=== PATIENT | male | born 1945 | race Caucasian/White ===

== ENCOUNTER 2025-06-15 14:13 | Outpatient (AMB) | payer MEDICARE, OTHER, SELFPAY ==
--- NOTE | 2025-06-15 14:50 | A.OFFPC_ITS ---
Vital Signs 06/15/25 14:51 Height 5 ft 10.5 in Weight 204 lb BMI 28.9 BP 120/82 Blood Pressure Location Lt brachial Position Sitting Respiration 16 Pulse 76 Pulse Source Pulse Oximeter Temp 97.1 F Temp Source Temporal Artery Scan Pulse Oximetry (%) 96 Oxygen Delivery Method Room Air Intake Visit Reasons: Routine Utility Forester Required: No Accompanied by: Self / Same As Patient Allergies clindamycin Adverse Reaction (Intermediate, Verified 06/15/25 14:50) Diarrhea ketoconazole Adverse Reaction (Intermediate, Verified 06/15/25 14:50) topical reaction-r jyoti Penicillins Adverse Reaction (Intermediate, Verified 06/15/25 14:50) rash/hive simvastatin Adverse Reaction (Intermediate, Verified 06/15/25 14:50) muscle aches Medication List - Last Reconciled 06/15/25 by Marianna Alexis MD amlodipine 5 mg PO BEDTIME amlodipine-benazepril 5-10 mg 1 cap PO DAILY ascorbate calcium (vitamin C) 500 mg PO DAILY aspirin 81 mg PO DAILY coenzyme Q10 (CoQ-10) 100 mg PO DAILY melatonin 10 mg PO BEDTIME PRN multivitamin 1 tab PO DAILY omega 8-uqg-bpe-fish oil 60-90-500 mg (Fish Oil) 1 cap PO DAILY omeprazole 20 - 40 mg PO DAILY pravastatin 20 mg PO DAILY Tobacco use date assessed: 06/15/25 Fall risk assessment: No Falls in past year Last assessed Fall Risk: 06/15/25 Dental Screening Dental Screen Date: 06/15/25 Did you have a dental visit in the last 12 months?: Yes Did you have a dental problem in the last 6 months where you did not have access to dental care?: No Was dental information given to patient?: Patient has dentist HPI HPI Comments History of Present Illness Details The patient is a 80-year-old male [facility] and to follow up on multiple issues. Cholelithiasis: The patient experienced an episode of abdominal pain after eating spicy food, which led to an ER visit on December 08. Was diagnosed with gallstones at that time. A follow-up ultrasound on December 25 confirmed several small gallstones, one near the neck of the gallbladder, but no inflammation. He has not had any recurrent attacks and is careful with his diet. Benign Prostatic Hyperplasia/elevated PSA: Following his last visit in December, the patient saw a urologist, Dr. Higginbotham, and underwent an MRI of the prostate. . He is scheduled for a follow-up appointment with the urologist in five or six months. Essential Hypertension: The patient's blood pressure is managed with amlodipine and amlodipine- benazepril. His reading today was 126/82 mmHg. Hyperlipidemia: The patient takes pravastatin for hyperlipidemia. Unintentional weight gain: The patient reports he has gained about 25 pounds over the last three years, since his hernia surgery. He notes that in the past five months he has been less active, walking less, and has been engaging in some stress-related eating with more sweets. Pt also has history of subclinical hyperthyroidism. Endovascular surveillance: The patient is due for a follow-up with endovascular services in 2025, which is expected to include a repeat MRA for carotid stenosis. 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 - He reports being less active and walki ng less over the past five months. Diagnostic Results: (December 25): Showed several small gallstones, with one near the neck of the gallbladder; there was no inflammation, normal wall thickness, and no fluid. - Incidental findings on ultrasound: A s mall cyst in the right lobe of the liver and another medial cyst were noted. Review of Systems - Constitutional: Reports weight gain of approximately 25 pounds over three years. - Gastrointestinal: Denies current abdom inal pain or tenderness - Psychological: Reports feeling stresse d and not taking good care of himself. - Neurological: Reports poor sleep quali ty. - Musculoskeletal: Reports feeling stiff in back occasionally Physical Exam - Gen: NAD - Cardiovascular: Normal rhythm. A soft murmur is noted on auscultation. Bilateral carotid auscultation reveals normal flow. - Respiratory: Lungs are clear to auscul tation bilaterally. - Abdomen: Normoactive bowel sounds. No tenderness on palpation. - Extremities: trace edema bilaterally Assessment and Plan 1. Cholelithiasis - The patient is currently asymptomatic. - He is managing his condition with diet lilly modifications, specifically avoiding spicy foods that triggered a prior attack. - The plan is to continue monitoring for symptoms. - Surgical intervention will be consider ed only if he experiences recurrent, inflamed episodes of cholecystitis. 2. Benign Prostatic Hyperplasia/PSA elev ation - The condition is stable. - The patient will continue with his [facility] ed[facility] follow-up with his urologist in 5-6 months. 3. Essential Hypertension - The patient's hypertension is well-con trolled, with a blood pressure reading of 126/82 mmHg. - Prescriptions for amlodipine-benazepri l (90-day mail order) and amlodipine (local pharmacy) will be renewed. 4. Hyperlipidemia - The condition is managed with medicati on. - A 90-day mail-order prescription for p ravastatin will be renewed. 5. Unintentional weight gain - The patient has gained 25 lbs over thr ee years, with recent contributing factors including stress, poor sleep, and decreased activity. - To investigate for underlying causes, labs will be ordered, including a CMP and a thyroid panel, given his history of fluctuating levels. 6. Subclinical hyperthyroidism- recheck tfts 7. Preventative Care - The patient is due for endovascular diego rveillance with a repeat MRA in 2025. Follow up in 4 months Discussion Notes We reviewed his recent urology follow-up, and I noted the reassuring results of his prostate MRI. We also discussed his history of gallstones, reviewing the December 25 ultrasound findings which showed cholelithiasis without acute cholecystitis. I discussed the plan to order labs, including a thyroid panel to investigate his recent weight gain, along with a CMP. Patient Instructions - Please go for your blood and urine dante ts next week or when it is convenient for you. The orders have been placed in the system, and you can visit any of the listed lab locations. - Continue taking your blood pressure an d cholesterol medications as prescribed. - To prevent gallbladder pain, continue to avoid very spicy and fatty foods. - Keep your follow-up appointment with y our urologist in 5-6 months. [facility] Medical History (Updated 06/15/25 @ 17:57 by Marianna Alexis MD) Subclinical hyperthyroidism Carotid artery stenosis GERD (gastroesophageal reflux disease) Cervical stenosis of spine Primary hypertension Hyperlipidemia, unspecified PSA elevation TIA (transient ischemic attack) Surgical History (Updated 06/15/25 @ 12:33 by Marianna Alexis MD) H/O knee surgery S/P hernia surgery H/O cervical spine surgery Family History (Updated 06/15/25 @ 12:40 by Marianna Alexis MD) Mother Primary hypertension Hyperlipidemia, unspecified Diabetes mellitus Carotid artery stenosis Brother Emphysema lung Social History Housing: [facility] Patient Tobacco Use Status: Former Tobacco user Years Smoked: 10 years e-Cigarette/Vaping Use: Never Used service: No Current occupational status: retired Questionnaire AUDIT C Alcohol Use Questionnaire (AUDIT-C) 1. How often do you have a drink containing alcohol?: Monthly or less 2. How many drinks containing alcohol do you have on a typical day when you are drinking?: 1 or 2 3. How often do you have six or more drinks on one occasion?: Never Total Score: 1 Physical exam (Primary Care) Vital Signs: Last Vital Signs Temp 97.1 F 06/15/25 14:51 Pulse 76 06/15/25 14:51 Resp 16 06/15/25 14:51 BP 120/82 06/15/25 14:51 Pulse Ox 96 06/15/25 14:51 Oxygen Delivery Method Room Air 06/15/25 14:51 BMI result Body Mass Index 28.9 Tobacco/Smoking Status: Tobacco use Status Tobacco use date assessed 06/15/25 06/15/25 14:58 Patient Tobacco Use Status Former Tobacco user 06/15/25 14:58 e-Cigarette/Vaping Use Never Used 06/15/25 14:58 Coding Level of Care Code Est Pt Level 4 (55216) Complex EM visit Add On G2211 Diagnoses Primary hypertension I10 Hyperlipidemia, unspecified hyperlipidemia type E78.5 Hyperlipidemia type: unspecified Subclinical hyperthyroidism E05.90 PSA elevation R97.20 Assessment & Plan Assessment & Plan (1) Primary hypertension: Code(s): I10 - Essential (primary) hypertension Category: Medical (2) Hyperlipidemia, unspecified: Code(s): E78.5 - Hyperlipidemia, unspecified Category: Medical Qualifiers: Hyperlipidemia type: unspecified Qualified Code(s): E78.5 - Hyperlipidemia, unspecified (3) Subclinical hyperthyroidism: Code(s): E05.90 - Thyrotoxicosis, unspecified without thyrotoxic crisis or storm Category: Medical (4) PSA elevation: Code(s): R97.20 - Elevated prostate specific antigen [PSA] Category: Medical Plan - Ordering labs including a CMP, thyroid panel, and a urine microalbumin - Patient to continue dietary modifications (avoiding fatty and spicy foods) to prevent gallbladder attacks. - Patient to continue with scheduled urology follow-up. - The patient is due for a follow-up MRA in 2025 as part of his endovascular surveillance. Orders: Orders Comprehensive Met. Panel Today E0. - Thyrotoxicosis, unspecified without thyrotoxic crisis or storm, E78.5 - Hyperlipidemia, unspecified, I10 - Essential (primary) hypertension, R97.20 - Elevated prostate specific antigen [PSA] Lipid Panel Today E0. - Thyrotoxicosis, unspecified without thyrotoxic crisis or storm, E78.5 - Hyperlipidemia, unspecified, I10 - Essential (primary) hypertension, R97.20 - Elevated prostate specific antigen [PSA] Complete Blood Count Auto Diff Today E0. - Thyrotoxicosis, unspecified without thyrotoxic crisis or storm, E78.5 - Hyperlipidemia, unspecified, I10 - Essential (primary) hypertension, R97.20 - Elevated prostate specific antigen [PSA] Ferritin Today E05.90 - Thyrotoxicosis, unspecified without thyrotoxic crisis or storm, E78.5 - Hyperlipidemia, unspecified, I10 - Essential (primary) hypertension, R97.20 - Elevated prostate specific antigen [PSA] IRON PROFILE Today E0.90 - Thyrotoxicosis, unspecified without thyrotoxic crisis or storm, E78.5 - Hyperlipidemia, unspecified, I10 - Essential (primary) hypertension, R97.20 - Elevated prostate specific antigen [PSA] TSH reflex Free T4 Today E0.90 - Thyrotoxicosis, unspecified without thyrotoxic crisis or storm, E78.5 - Hyperlipidemia, unspecified, I10 - Essential (primary) hypertension, R97.20 - Elevated prostate specific antigen [PSA] Microalbumin, Random (w Creat) Today E0.90 - Thyrotoxicosis, unspecified without thyrotoxic crisis or storm, E78.5 - Hyperlipidemia, unspecified, I10 - Essential (primary) hypertension Medications: New pravastatin GOES TO MAIL ORDER 20 mg PO DAILY 90 tabs 3RF 90 days amlodipine-benazepril 5-10 mg 1 cap PO DAILY 90 caps 3RF amlodipine GOES TO LOCAL PHARMACY 5 mg PO BEDTIME
[2025-06-15 14:51] VITALS: BP 120/82; PULSE 76; RESP 16; TEMP 36.2; O2SAT 96; BMI 28.9
--- OUTSIDE RECORDS SUMMARY | 2025-06-15 16:35 | XMS_ITS | Clinical Summary ---
Author Organization [employer] Address [address] [place] [address] Care Team Providers Care Shipfitter Apprentice Name Role Phone Unavailable Primary Care Provider Unavailabl e Social History Tobacco Use Types Packs/Day Years Used Date Smoking Tobacco: Never Assessed Sex and Gender Information Value Date Recorded Sex Assigned at Male 06/05/2022 10:40 AM EDT Legal Sex Male 10:40 AM EDT Gender Identity Male 06/05/2022 10:40 AM EDT Sexual Orientation Straight 06/05/2022 10 :40 AM EDT Plan of Treatment Health Maintenance Due Date Last Done Comments Depression Screening 1945 Lipid Panel 1945 Alcohol/Substance Use Screening 1958 Tobacco Screening 1958 DTaP/Tdap/Td Vaccines (1 - Tdap) 1965 Pneumococcal Vaccine: 50+ Ye ars (1 of 1 - PCV) 1996 Zoster Vaccines (1 of 2) 1996 RSV Patients and Pa tients Aged 60 years or older (1 - 1-dose 75+ series) 2021 COVID-19 Vaccine (1 - 2023-2 5 season) 2025 Influenza Vaccine (#1) 2025 HIB Vaccines Aged Out No longer eligi ble based on patient's age to complete this topic HPV Vaccines Aged Out No longer eligi ble based on patient's age to complete this topic Hepatitis A Vaccines Aged Out No long er eligible based on patient's age to complete this topic Hepatitis B Vaccines Aged Out No long er eligible based on patient's age to complete this topic IPV Vaccines Aged Out No longer eligi ble based on patient's age to complete this topic Meningococcal B Vaccine Aged Out No l onger eligible based on patient's age to complete this topic Meningococcal Vaccine Aged Out No luis a [place] eligible based on patient's age to complete this topic RSV under 20 months Aged Out No longe r eligible based on patient's age to complete this topic Rotavirus Vaccines Aged Out No longer eligible based on patient's age to complete this topic
--- OUTSIDE RECORDS SUMMARY | 2025-06-15 16:35 | XMS_ITS | Encounter Summary ---
Author Organization [employer] [facility] Address [address] [place] [address] Care Team Providers Care Handle Assembler Name Role Phone Unavailable Primary Care Provider Unavailabl e Encounter Details Date Type Department Care Team (Latest Contact Info) Description 11/09/2021 Abstract C CONVERSIONS Dental, Provider, DDS Social History Tobacco Use Types Packs/Day Years Used Date Smoking Tobacco: Never Assessed Sex and Gender Information Value Date Recorded Sex Assigned at Male 06/05/2022 10:40 AM EDT Legal Sex Male 10:40 AM EDT Gender Identity Male 06/05/2022 10:40 AM EDT Sexual Orientation Straight 06/05/2022 10 :40 AM EDT documented as of this encounter Plan of Treatment Not on file documented as of this encounter Visit Diagnoses Not on filedocumented in this encounter
--- OUTSIDE RECORDS SUMMARY | 2025-06-15 16:35 | XMS_ITS | Clinical Summary ---
Author Organization [facility] Address [address] [place] [address] Care Team Providers Care Sheep Killer Name Role Phone Davey Gil MD Primary Care Provider [phone] Social History Tobacco Use Types Packs/Day Years Used Date Smoking Tobacco: Never Assessed Sex and Gender Information Value Date Recorded Sex Assigned at Not on file Legal Sex Male 10:03 PM EST Gender Identity Not on file Sexual Orientation Not on file Plan of Treatment Health Maintenance Due Date Last Done Comments DTaP,Tdap,and Td Vaccines (1 - Tdap) 1965 Pneumococcal Vaccine: 50+ Ye ars (1 of 1 - PCV) 1996 Zoster Vaccines (1 of 2) 1996 RSV Immunization Adult Patie nts (1 - 1-dose 75+ series) 2021 Depression Screening 08/06/2024 COVID-19 Vaccine (1 - 2023-2 5 season) [...] on patient's age to complete this topic MMR Vaccines Aged Out No longer eligi ble based on patient's age to complete this topic Meningococcal ACWY Vaccine Aged Out N o longer eligible based on patient's age to complete this topic Meningococcal B Vaccine Aged Out No l onger eligible based on patient's age to complete this topic RSV Immunization Patients Un armando 20 months Aged Out No longer eligible b ased on patient's age to complete this topic Varicella Vaccines Aged Out No longer eligible based on patient's age to complete this topic Care Teams Sheep Killer Relationship Specialty Start Date End Date Davey Gil MD PCP - General 05/12/17
== END 2025-06-15 15:39 | disposition home or self-care (01) ==
LOC: HO.HMCHD 14:14
PROVIDERS: PCP Internal Medicine; Visit Provider Internal Medicine
DX: I10 Essential (primary) hypertension (principal); E78.5 Hyperlipidemia, unspecified; E05.90 Thyrotoxicosis, unspecified without thyrotoxic crisis or storm; R97.20 Elevated prostate specific antigen [PSA]

== ENCOUNTER → 2025-06-15 14:13 | Outpatient (BNVA) | payer MEDICARE, OTHER, SELFPAY | PROVIDERS: PCP Internal Medicine; Visit Provider Internal Medicine | DX: I10 Essential (primary) hypertension (principal); E78.5 Hyperlipidemia, unspecified; E05.90 Thyrotoxicosis, unspecified without thyrotoxic crisis or storm; R97.20 Elevated prostate specific antigen [PSA]; Z76.89 Persons encountering health services in other specified circumstances; Z13.30 Encounter for screening examination for mental health and behavioral disorders, unspecified | CPT/HCPCS: 99212 ==

== ENCOUNTER 2025-06-26 07:32 | Outpatient (REF) | payer MEDICARE, OTHER, SELFPAY ==
--- OUTSIDE RECORDS SUMMARY | 2025-06-26 07:36 | XMS_ITS | Clinical Summary ---
Author Organization [facility] Address [address] [place] [address] Care Team Providers Care Acetylene Operator Name Role Phone Davey Gil MD Primary Care Provider [phone] Social History Tobacco Use Types Packs/Day Years [...] Depression Screening 08/06/2024 COVID-19 Vaccine (1 - 2024-2 6 season) 2025 Influenza Vaccine (#1) 2025 HIB [...] age to complete this topic Care Teams Acetylene Operator Relationship Specialty Start Date End Date Davey Gil MD PCP - General 05/12/17
--- OUTSIDE RECORDS SUMMARY | 2025-06-26 07:36 | XMS_ITS | Encounter Summary ---
Author Organization [facility] [employer] [facility] Address [address] [place] [address] Care Team Providers Care Equipment Maintenance Engineer Name Role Phone Unavailable Primary Care Provider [...]
--- OUTSIDE RECORDS SUMMARY | 2025-06-26 07:36 | XMS_ITS | Clinical Summary ---
Author Organization [employer] Address [address] [place] [address] Care Team Providers Care Manager Intermediate Name Role Phone Unavailable Primary Care Provider [...] - 1-dose 75+ series) 2021 COVID-19 Vaccine ( - 2024-2 6 season) 2025 Influenza Vaccine [...]
[2025-06-26 09:58] LABS: MANUAL DIFF FLAG NO
[2025-06-26 10:18] LABS: Hematocrit 40.2 % (42.0-52.0); Hemoglobin 13.7 g/dl (14.0-18.0); Imm Gran Abs Auto 0.02 X10*3/uL (0.00-0.03); Imm Gran Pct Auto 0.3 % (0.0-0.4); Lymphocytes Absolute Auto 2.0 X10*3/uL (1.2-4.9); Mean Corpuscular HGB Conc 34.1 g/dl (31.0-36.0); Mean Corpuscular Hemoglobin 30.4 pg (27.0-33.0); Mean Corpuscular Volume 89.3 fL (80.0-98.0); NRBC Abs Auto 0.000 X10*3/uL (0.0-0.012); NRBC Pct Auto 0.0 /100WBC (0.0-0.2); Platelet Count 180 X10*3/uL (160-400); Red Blood Count 4.50 X10*6/uL (4.60-5.80); White Blood Count 7.1 X10*3/uL (4.8-10.8)
[2025-06-26 10:51] LABS: Alanine Aminotransferase 15 U/L (0-40); Albumin Level 4.3 g/dL (3.5-5.0); Alkaline Phosphatase 74 U/L (39-117); Anion Gap 8 (12-20); Aspartate Amino Transferase 23 U/L (5-37); Blood Urea Nitrogen 16 mg/dL (9-16); Calcium 9.1 mg/dL (8.4-10.2); Carbon Dioxide 29 mmol/L (22-29); Chloride 109 mmol/L (96-108); Cholesterol 193 mg/dL (<200); Estimated Glomerular Filt Rate > 60; HDL Cholesterol 39 mg/dL (>40); Iron 70 mcg/dL (45-160); Percent Iron Saturation 25 % (15-50); Potassium 3.9 mmol/L (3.3-5.1); Sodium 142 mmol/L (135-145); Total Iron Binding Capacity 275 mcg/dL (228-428); Total Protein 6.6 g/dL (6.5-8.0); Triglycerides 151 mg/dL (<150); Unsaturated Iron Binding 205 ug/dL
[2025-06-26 11:02] LABS: Microalbum/Creatinine Ratio Ur 11.1 ug/mg cr (<30)
[2025-06-26 11:17] LABS: Ferritin 30 ng/mL (20-250)
== END 2025-06-26 07:33 | disposition home or self-care (01) ==
LOC: HO.HMGCLDS 07:32
PROVIDERS: PCP Internal Medicine; Visit Provider Internal Medicine
DX: I10 Essential (primary) hypertension (principal); E78.5 Hyperlipidemia, unspecified; E05.90 Thyrotoxicosis, unspecified without thyrotoxic crisis or storm; R97.20 Elevated prostate specific antigen [PSA]
CPT/HCPCS: 36415; 80053; 80061; 82043; 82570; 82728; 83540; 84443; 85025